=== PATIENT | female | born 1980 | race Caucasian/White ===

== ENCOUNTER 2023-07-05 05:55 | Day surgery (SDC) | payer BC ==
[~2023-07-05] VITALS: Ht 172.7 cm; Wt 85.4 kg
[2023-07-05] MEDS ORDERED: CEFAZOLIN SOD 2 GM in D5W 50 ML IV ONE (07:00)
[2023-07-05] MEDS ORDERED: ROCURONIUM BROMIDE 10 MG/ML (ZEMURON) ONE (07:45)
[2023-07-05] MEDS ORDERED: DEXAMETHASONE SOD PHOSPHATE 4 MG/ML VIAL ONE (07:45)
[2023-07-05] MEDS ORDERED: ePHEDrine sulfate 50 MG/ML VIAL ONE (07:45)
[2023-07-05] MEDS ORDERED: SEVOFLURANE 15 MIN GAS INH ONE (07:45)
[2023-07-05] MEDS ORDERED: LIDOCAINE 1% 10 MG/ML, 20 ML MDV ONE (07:45)
[2023-07-05] MEDS ORDERED: GLYCOPYRROLATE 0.2 MG/ML VIAL ONE (07:45)
[2023-07-05] MEDS ORDERED: LR 1,000 ML IV.SOLN IV ONE (07:45)
[2023-07-05] MEDS ORDERED: FUROSEMIDE 40 MG/4 ML VIAL ONE (07:45)
[2023-07-05] MEDS ORDERED: METOCLOPRAMIDE HCL 10 MG/2 ML VIAL ONE (07:45)
[2023-07-05] MEDS ORDERED: NEOSTIGMINE METHYLSULFATE 1 MG/ML, 10 ML VIAL ONE (07:45)
[2023-07-05] MEDS ORDERED: PROPOFOL 200MG/ 20ML VIAL (DIPRIVAN) IV ONE (07:45)
[2023-07-05] MEDS ORDERED: KETOROLAC TROMETHAMINE 30 MG VIAL ONE (07:45)
[2023-07-05] MEDS ORDERED: ONDANSETRON HCL 4 MG/2 ML VIAL ONE (07:45)
[2023-07-05] MEDS ORDERED: MIDAZOLAM HCL 2 MG/2 ML VIAL (VERSED) ONE (07:45)
[2023-07-05] MEDS ORDERED: fentaNYL CITRATE/PF 100 MCG/2 ML AMP ONE (07:45)
[2023-07-05 08:18] VITALS: O2SAT 100
[2023-07-05] MEDS ORDERED: KETOROLAC TROMETHAMINE 30 MG VIAL IVP PRN (09:00)
[2023-07-05] MEDS ORDERED: HYDROmorphone 1 MG/ML INJ. CARTRIDGE IVP PRN (09:00)
[2023-07-05] MEDS ORDERED: LR 1,000 ML IV SCH (09:00)
[2023-07-05] MEDS ORDERED: ONDANSETRON HCL 4 MG/2 ML VIAL IVP PRN ×2 (09:00→10:00)
[2023-07-05] MEDS ORDERED: HYDROmorphone 2 MG/ML VIAL IVP PRN (09:00)
[2023-07-05] MEDS ORDERED: ACETAMINOPHEN I.V. 1000 MG 100 ML IV ONE (09:45)
[2023-07-05] MEDS ORDERED: HYDROcodone/ACETAMIN 5-325 MG TAB (NORCO/ VICODIN) PO PRN (10:00)
[2023-07-05] MEDS ORDERED: OXYCODONE/ACETAMINOPHEN 5-325 TABLET PO PRN ×2 (10:00)
[2023-07-05] MEDS ORDERED: SIMETHICONE 80 MG TAB.CHEW ONE ×2 (12:29→12:41)
[2023-07-05 12:42] VITALS: BP_SYST 99; PULSE 72; RESP 18; TEMP 97.3
[2023-07-05] MEDS ORDERED: SIMETHICONE 80 MG TAB.CHEW PO SCH (13:00)
== END 2023-07-05 15:25 | disposition home or self-care (01) ==
LOC: SDS 05:55 → SMU 05:55 → SDS 15:25
PROVIDERS: ATTEND Specialist
DX: N92.0 Excessive and frequent menstruation with regular cycle (principal); D25.1 Intramural leiomyoma of uterus; N84.0 Polyp of corpus uteri; R10.2 Pelvic and perineal pain; Z80.0 Family history of malignant neoplasm of digestive organs; Z79.899 Other long term (current) drug therapy
CPT/HCPCS: 87081; 58554; 71045; 88307; J0690; J1100; J3490; J1885; J2765; J3465; J2405; J2704; J3010; J7060; J7120; C1727; J0131; J2710; J1940; J2001